=== PATIENT | female | born 1950 | race Caucasian/White ===

== ENCOUNTER 2018-11-15 15:22 | Inpatient (IN) | payer OTHER, MEDICAID ==
[~2018-11-15] VITALS: Ht 167.6 cm; Wt 68.2 kg
[2018-11-15] MEDS ORDERED: ondansetron/PF 4mg/2ml inj IV ONE (16:35)
[2018-11-15] MEDS ORDERED: LORazepam 2 mg/ml vial IV ONE (16:35)
[2018-11-15 16:55] LABS: BASOPHILS # (AUTO) 0.1 X10'3 (0-0.2); BASOPHILS % (AUTO) 0.8 % (0-1); EOSINOPHILS # (AUTO) 0.2 X10'3 (0-0.9); EOSINOPHILS % (AUTO) 1.2 % (0-6); HEMOGLOBIN 12.9 g/dl (12.0-16.0); LYMPHOCYTES # (AUTO) 1.2 X10'3 (1.1-4.8); MEAN CORPUSCULAR HEMOGLOBIN 29.5 PG (27.0-31.0); MEAN CORPUSCULAR HGB CONC 33.1 g/dL (33.0-36.5); MEAN CORPUSCULAR VOLUME 89.4 FL (78-98); MEAN PLATELET VOLUME 8.5 FL (7.4-10.4); MONOCYTES # (AUTO) 0.9 X10'3 (0-0.9); NEUTROPHILS # (AUTO) 10.7 X10'3 (1.8-7.7); PLATELET COUNT 241 X10'3 (140-440); RED BLOOD COUNT 4.37 X10'6 (4.20-5.60); RED CELL DISTRIBUTION WIDTH 14.5 % (11.5-14.5); WHITE BLOOD COUNT 13.1 X10'3 (4.5-11.0)
[2018-11-15] MEDS ORDERED: morphine 2 MG/ML inj. syringe IV ONE (16:55)
[2018-11-15 17:07] LABS: ALANINE AMINOTRANSFERASE 28 U/L (12-78); ALBUMIN 3.5 G/DL (3.4-5.0); ALBUMIN/GLOBULIN RATIO 1.2 (1.1-1.5); ALKALINE PHOSPHATASE 62 IU/L (46-116); ANION GAP 5 (8-16); ASPARTATE AMINO TRANSFERASE 17 U/L (10-37); BILIRUBIN,TOTAL 0.4 MG/DL (0.1-1.0); BLOOD UREA NITROGEN 15 MG/DL (7-18); BUN/CREATININE RATIO 17.4 (6.6-38.0); CALCIUM 8.7 MG/DL (8.5-10.1); CHLORIDE 109 MMOL/L (99-107); CREATININE 0.86 MG/DL (0.40-0.90); GLUCOSE 104 MG/DL (70-104); POTASSIUM 3.6 MMOL/L (3.5-5.1); SODIUM 141 MMOL/L (135-145); TOTAL CARBON DIOXIDE 27.5 MMOL/L (24-32); TOTAL PROTEIN 6.5 G/DL (6.4-8.2); eGFR 66 ML/MIN
[2018-11-15] MEDS: K and/or MAG REPLACEMENT MC SCH (18:10)
[2018-11-15] MEDS ORDERED: acetaminophen 325mg tablet PO PRN (18:10)
[2018-11-15] MEDS ORDERED: potassium Cl 20 mEq SR tablet PO PRN ×2 (18:10)
[2018-11-15] MEDS ORDERED: bisacodyl 10mg suppository rectal RC PRN (18:10)
[2018-11-15] MEDS ORDERED: magnesium 2GM in 50ml NS 50 ML IV PRN (18:10)
[2018-11-15] MEDS ORDERED: potassium Cl 40MEQ/NS 500ml 500 ML IV PRN (18:10)
[2018-11-15] MEDS ORDERED: mag hydrox/Alum hydrox/simeth 30ml oral suspension PO PRN (18:10)
[2018-11-15] MEDS ORDERED: ondansetron/PF 4mg/2ml inj IV PRN (18:10)
[2018-11-15] MEDS ORDERED: magnesium 4gm in 100ml NS 100 ML IV PRN (18:10)
[2018-11-15] MEDS ORDERED: magnesium Cl slow-release 64mg tablet PO PRN (18:10)
[2018-11-15] MEDS ORDERED: potassium CL 10mEq/100ml bag 100 ML IV PRN (18:10)
[2018-11-15] MEDS: HYDROmorphone inj. 0.5 MG/0.5 ML DISP.SYRIN IV PRN (18:49)
[2018-11-15] MEDS ORDERED: LISI-600 PO (19:04)
[2018-11-15] MEDS ORDERED: CLOP75TA35 PO (19:04)
[2018-11-15] MEDS ORDERED: ASPI-1265 PO (19:04)
[2018-11-15] MEDS ORDERED: TRAM50TA2 PO (19:04)
[2018-11-15] MEDS ORDERED: ATOR40TA71 PO (19:04)
[2018-11-15 20:00] VITALS: BP 134/84
[2018-11-15] MEDS: docusate sod 100mg capsule PO SCH (20:00)
--- NOTE | 2018-11-15 20:00 | NUR ---
Received report. Patient brought to room via gurney. VS taken and tele monitor placed. Educated to POC and call light. FC placed.
[2018-11-15] MEDS: potassium Cl 20mEq in NS 1,000 ML IV SCH (21:02)
[2018-11-15 21:47] LABS: CLARITY,URINE CLEAR (Clear); COLOR,URINE YELLOW (Yellow); GLUCOSE, URINE NEGATIVE (Neg); KETONES,URINE NEGATIVE (Neg); LEUKOCYTE ESTERASE ,URINE NEGATIVE (Neg); NITRITES, URINE NEGATIVE (Neg); OCCULT BLOOD,URINE NEGATIVE (Neg); PH,URINE 6.5 (4.8-8.0); PROTEIN,URINE NEGATIVE (Neg); UROBILINOGEN,URINE 0.2 E.U/dL (0.2-1.0)
[2018-11-15 21:52] LABS: UA COLLECTION TYPE FOLEY CATH
[2018-11-15] MEDS: HYDROmorphone 1 mg/ml syringe IV PRN (21:59)
[2018-11-15 22:00] VITALS: BP 119/64
[2018-11-16] VITALS (18 sets, daily range): BP systolic 114–167; BP diastolic 76–97
[2018-11-16] MEDS: HYDROmorphone 1 mg/ml syringe IV PRN ×2 (02:50→15:07)
--- NOTE | 2018-11-16 06:26 | NUR ---
Problems reprioritized. Patient report given, questions answered & plan of care reviewed with Teresa. SCALES.
[2018-11-16 06:34] LABS: BASOPHILS # (AUTO) 0.1 X10'3 (0-0.2); BASOPHILS % (AUTO) 0.9 % (0-1); EOSINOPHILS # (AUTO) 0.1 X10'3 (0-0.9); EOSINOPHILS % (AUTO) 1.3 % (0-6); HEMATOCRIT 36.6 % (35.0-45.0); HEMOGLOBIN 12.4 g/dl (12.0-16.0); LYMPHOCYTES # (AUTO) 1.5 X10'3 (1.1-4.8); LYMPHOCYTES % (AUTO) 20.1 % (21-51); MEAN CORPUSCULAR HGB CONC 33.8 g/dL (33.0-36.5); MEAN CORPUSCULAR VOLUME 88.9 FL (78-98); MEAN PLATELET VOLUME 8.6 FL (7.4-10.4); MONOCYTES # (AUTO) 0.8 X10'3 (0-0.9); MONOCYTES % (AUTO) 10.8 % (2-12); NEUTROPHILS % (AUTO) 66.9 % (42-75); PLATELET COUNT 197 X10'3 (140-440); RED BLOOD COUNT 4.12 X10'6 (4.20-5.60); RED CELL DISTRIBUTION WIDTH 14.4 % (11.5-14.5); WHITE BLOOD COUNT 7.4 X10'3 (4.5-11.0)
[2018-11-16 07:02] LABS: ANION GAP 6 (8-16); BLOOD UREA NITROGEN 13 MG/DL (7-18); BUN/CREATININE RATIO 17.8 (6.6-38.0); CALCIUM 8.4 MG/DL (8.5-10.1); CHLORIDE 109 MMOL/L (99-107); CREATININE 0.73 MG/DL (0.40-0.90); GLUCOSE 98 MG/DL (70-104); POTASSIUM 4.2 MMOL/L (3.5-5.1); SODIUM 141 MMOL/L (135-145); TOTAL CARBON DIOXIDE 25.6 MMOL/L (24-32); eGFR 79 ML/MIN
[2018-11-16] MEDS: nicotine 21mg patch - 24 hr TD SCH (07:18)
[2018-11-16] MEDS: docusate sod 100mg capsule PO SCH ×2 (07:31→19:40)
[2018-11-16] MEDS: traMADol 50MG tablet PO PRN (07:32)
[2018-11-16] MEDS: K and/or MAG REPLACEMENT MC SCH (08:00)
[2018-11-16] MEDS: potassium Cl 20mEq in NS 1,000 ML IV SCH ×2 (08:00→14:21)
[2018-11-16] MEDS: HYDROmorphone inj. 0.5 MG/0.5 ML DISP.SYRIN IV PRN (13:06)
[2018-11-16] MEDS ORDERED: sevoflurane 250ml liquid IH ONE (13:56)
[2018-11-16] MEDS ORDERED: fentaNYL/PF 50MCG/1 ML 2ML syringe ONE (13:57)
[2018-11-16] MEDS ORDERED: propofol inj 20 ML IV ONE (13:58)
--- NOTE | 2018-11-16 14:30 | NUR ---
Received from OR via bed, accompanied by Anesthesiologist. Report received. Initial physical assessment done and recorded. LMA in place on arrival to PACU.
--- NOTE | 2018-11-16 14:35 | NUR ---
LMA out, able to lift head on request, complaints of pain medicated per orders
--- NOTE | 2018-11-16 15:30 | NUR ---
Discharge criteria met, report to receiving floor. Transferred to room in stable condition.
--- NOTE | 2018-11-16 15:43 | NUR ---
Malnutrition consult. PO intake is pending. patient admitted with severe muscle weakness likely r/t fractured right femur, presented to ED [facility] and admitted with right femur fracture. Patient now s/p right open reduction percutaneous hip pinning on 11/16. PO intake pending, patient back from surgery today. Right left 3+ non pitting, likely r/t the fracture. Unable to perform bedside interview today as she is s/p surgery. Patient on a regular diet, recommend oral nutrition supplement to provide additional protein for healing and while pending bedside interview for malnutrition. Recommend: 1. continue regular diet 2. recommend ensure enlive with meals 3. weight per rx Addendum: 11/16/18 at [address] Amended: Links added.
[2018-11-16] MEDS: cefazolin/dext.iso 2gm/100ml 100 ML IV SCH (17:45)
[2018-11-16] MEDS: lactose-reduced food (Ensure Enlive) - 237ml bottle PO SCH (18:00)
--- NOTE | 2018-11-16 18:18 | NUR ---
report to Deann Link RN
--- NOTE | 2018-11-16 18:23 | NUR ---
Report received from Shelby SCALES.
[2018-11-17] MEDS: traMADol 50MG tablet PO PRN ×3 (01:02→21:32)
[2018-11-17] MEDS: cefazolin/dext.iso 2gm/100ml 100 ML IV SCH (01:02)
[2018-11-17] MEDS: potassium Cl 20mEq in NS 1,000 ML IV SCH ×2 (01:05→20:59)
[2018-11-17 02:00] VITALS: BP 150/79
[2018-11-17 06:00] VITALS: BP 141/85
[2018-11-17 06:14] LABS: BASOPHILS % (AUTO) 0.3 % (0-1); EOSINOPHILS % (AUTO) 0.3 % (0-6); HEMOGLOBIN 12.7 g/dl (12.0-16.0); LYMPHOCYTES # (AUTO) 1.1 X10'3 (1.1-4.8); LYMPHOCYTES % (AUTO) 10.9 % (21-51); MEAN CORPUSCULAR HEMOGLOBIN 29.9 PG (27.0-31.0); MEAN CORPUSCULAR HGB CONC 33.4 g/dL (33.0-36.5); MEAN CORPUSCULAR VOLUME 89.4 FL (78-98); MEAN PLATELET VOLUME 9.1 FL (7.4-10.4); MONOCYTES # (AUTO) 0.9 X10'3 (0-0.9); MONOCYTES % (AUTO) 8.9 % (2-12); NEUTROPHILS # (AUTO) 8.3 X10'3 (1.8-7.7); NEUTROPHILS % (AUTO) 79.6 % (42-75); PLATELET COUNT 175 X10'3 (140-440); RED BLOOD COUNT 4.25 X10'6 (4.20-5.60); RED CELL DISTRIBUTION WIDTH 14.3 % (11.5-14.5); WHITE BLOOD COUNT 10.5 X10'3 (4.5-11.0)
--- NOTE | 2018-11-17 06:28 | NUR ---
Student documentation: I have reviewed and agree with all medication administrations, interventions, assessments performed and documented by Shelby Carver
--- NOTE | 2018-11-17 06:31 | NUR ---
Report given to Shelby SCALES.
[2018-11-17 06:32] LABS: ALBUMIN 2.8 G/DL (3.4-5.0); ANION GAP 7 (8-16); BLOOD UREA NITROGEN 9 MG/DL (7-18); CALCIUM 8.3 MG/DL (8.5-10.1); CHLORIDE 103 MMOL/L (99-107); CREATININE 0.69 MG/DL (0.40-0.90); GLUCOSE 95 MG/DL (70-104); MAGNESIUM 1.7 MG/DL (1.5-2.4); POTASSIUM 4.1 MMOL/L (3.5-5.1); SODIUM 135 MMOL/L (135-145); TOTAL CARBON DIOXIDE 25.3 MMOL/L (24-32); eGFR 85 ML/MIN
[2018-11-17] MEDS: K and/or MAG REPLACEMENT MC SCH (07:14)
[2018-11-17] MEDS: nicotine 21mg patch - 24 hr TD SCH (08:00)
[2018-11-17] MEDS: aspirin 81mg tab.chew PO SCH (08:28)
[2018-11-17] MEDS: docusate sod 100mg capsule PO SCH ×2 (08:28→20:49)
[2018-11-17] MEDS: clopidogrel 75mg tablet PO SCH (08:28)
[2018-11-17] MEDS: atorvastatin 20mg tablet PO SCH (08:28)
[2018-11-17 10:00] VITALS: BP 106/60
--- NOTE | 2018-11-17 15:07 | NUR ---
F/u: Pt PO 75% avg meals w/ ONS; able to eat if not drowsy per RN today. No signs of muscle/fat wasting per RN. Pt has no significant weakness noted as well today. Does not qualify for malnutrition at this time. Will continue to monitor. Recommend: 1. continue regular diet 2. recommend ensure enlive with meals 3. weight per rx Addendum: 11/17/18 at [address] Amended: Links added.
--- NOTE | 2018-11-17 15:33 | NUR ---
Report to Mita wells RN
--- NOTE | 2018-11-17 16:30 | NUR ---
Patient in room [facility]TH[facility] 4024. I have received report from YORDY NUR and had the opportunity to ask questions and assume patient care.
[2018-11-17] MEDS: enoxaparin 40mg/0.4ml syringe SUBCUT SCH (16:54)
[2018-11-17 18:00] VITALS: BP 126/71
[2018-11-17] MEDS: lactose-reduced food (Ensure Enlive) - 237ml bottle PO SCH (18:00)
[2018-11-17 22:00] VITALS: BP 121/74
[2018-11-18] MEDS: potassium Cl 20mEq in NS 1,000 ML IV SCH (03:51)
[2018-11-18 05:43] LABS: BASOPHILS # (AUTO) 0.1 X10'3 (0-0.2); BASOPHILS % (AUTO) 0.8 % (0-1); EOSINOPHILS # (AUTO) 0.2 X10'3 (0-0.9); EOSINOPHILS % (AUTO) 2.3 % (0-6); HEMATOCRIT 37.6 % (35.0-45.0); HEMOGLOBIN 12.4 g/dl (12.0-16.0); LYMPHOCYTES # (AUTO) 1.4 X10'3 (1.1-4.8); LYMPHOCYTES % (AUTO) 16.7 % (21-51); MEAN CORPUSCULAR HEMOGLOBIN 29.5 PG (27.0-31.0); MEAN CORPUSCULAR HGB CONC 32.9 g/dL (33.0-36.5); MEAN CORPUSCULAR VOLUME 89.7 FL (78-98); MEAN PLATELET VOLUME 9.2 FL (7.4-10.4); MONOCYTES # (AUTO) 1.1 X10'3 (0-0.9); NEUTROPHILS # (AUTO) 5.6 X10'3 (1.8-7.7); NEUTROPHILS % (AUTO) 67.2 % (42-75); PLATELET COUNT 176 X10'3 (140-440); RED BLOOD COUNT 4.19 X10'6 (4.20-5.60); RED CELL DISTRIBUTION WIDTH 14.1 % (11.5-14.5); WHITE BLOOD COUNT 8.3 X10'3 (4.5-11.0)
[2018-11-18] MEDS: traMADol 50MG tablet PO PRN ×2 (05:46→14:53)
[2018-11-18 06:00] VITALS: BP 139/68
--- NOTE | 2018-11-18 06:20 | NUR ---
Patient in room [facility]TH[facility] 4024. I have received report from FEDERICO SCALES and had the opportunity to ask questions and assume patient care.
[2018-11-18 06:23] LABS: ALBUMIN 2.5 G/DL (3.4-5.0); ANION GAP 7 (8-16); BLOOD UREA NITROGEN 14 MG/DL (7-18); BUN/CREATININE RATIO 19.4 (6.6-38.0); CALCIUM 8.4 MG/DL (8.5-10.1); CHLORIDE 103 MMOL/L (99-107); CREATININE 0.72 MG/DL (0.40-0.90); GLUCOSE 90 MG/DL (70-104); MAGNESIUM 1.8 MG/DL (1.5-2.4); POTASSIUM 3.8 MMOL/L (3.5-5.1); SODIUM 136 MMOL/L (135-145); TOTAL CARBON DIOXIDE 26.2 MMOL/L (24-32); eGFR 81 ML/MIN
--- NOTE | 2018-11-18 06:25 | NUR ---
Problems reprioritized. Patient report given, questions answered & plan of care reviewed with adriana Westbrook.
[2018-11-18] MEDS: K and/or MAG REPLACEMENT MC SCH (08:00)
[2018-11-18] MEDS: clopidogrel 75mg tablet PO SCH (08:52)
[2018-11-18] MEDS: aspirin 81mg tab.chew PO SCH (08:52)
[2018-11-18] MEDS: docusate sod 100mg capsule PO SCH ×2 (08:52→19:47)
[2018-11-18] MEDS: atorvastatin 20mg tablet PO SCH (08:52)
[2018-11-18] MEDS: lactose-reduced food (Ensure Enlive) - 237ml bottle PO SCH ×3 (08:53→18:00)
[2018-11-18] MEDS: enoxaparin 40mg/0.4ml syringe SUBCUT SCH (08:53)
[2018-11-18] MEDS: magnesium hydroxide 30ml (MOM) UD suspension PO PRN (08:59)
[2018-11-18 10:00] VITALS: BP 105/68
[2018-11-18 18:00] VITALS: BP 96/61
--- NOTE | 2018-11-18 18:25 | NUR ---
Problems reprioritized. Patient report given, questions answered & plan of care reviewed with DIMA SCALES.
[2018-11-18 22:00] VITALS: BP 121/70
[2018-11-19] MEDS: traMADol 50MG tablet PO PRN ×3 (05:17→22:51)
[2018-11-19 05:49] LABS: ALBUMIN 2.4 G/DL (3.4-5.0); ANION GAP 5 (8-16); BLOOD UREA NITROGEN 14 MG/DL (7-18); BUN/CREATININE RATIO 19.7 (6.6-38.0); CALCIUM 8.2 MG/DL (8.5-10.1); CHLORIDE 105 MMOL/L (99-107); CREATININE 0.71 MG/DL (0.40-0.90); GLUCOSE 95 MG/DL (70-104); MAGNESIUM 1.9 MG/DL (1.5-2.4); POTASSIUM 3.7 MMOL/L (3.5-5.1); SODIUM 138 MMOL/L (135-145); TOTAL CARBON DIOXIDE 27.8 MMOL/L (24-32); eGFR 82 ML/MIN
[2018-11-19 05:57] LABS: BASOPHILS % (AUTO) 0.6 % (0-1); EOSINOPHILS # (AUTO) 0.3 X10'3 (0-0.9); EOSINOPHILS % (AUTO) 4.2 % (0-6); HEMATOCRIT 36.3 % (35.0-45.0); LYMPHOCYTES # (AUTO) 1.4 X10'3 (1.1-4.8); MEAN CORPUSCULAR HEMOGLOBIN 29.5 PG (27.0-31.0); MEAN CORPUSCULAR HGB CONC 33.1 g/dL (33.0-36.5); MEAN CORPUSCULAR VOLUME 89.2 FL (78-98); MEAN PLATELET VOLUME 9.3 FL (7.4-10.4); MONOCYTES # (AUTO) 0.8 X10'3 (0-0.9); MONOCYTES % (AUTO) 12.9 % (2-12); NEUTROPHILS # (AUTO) 3.7 X10'3 (1.8-7.7); NEUTROPHILS % (AUTO) 60.3 % (42-75); PLATELET COUNT 203 X10'3 (140-440); RED BLOOD COUNT 4.07 X10'6 (4.20-5.60); RED CELL DISTRIBUTION WIDTH 13.8 % (11.5-14.5); WHITE BLOOD COUNT 6.2 X10'3 (4.5-11.0)
[2018-11-19 06:00] VITALS: BP 127/80
--- NOTE | 2018-11-19 06:14 | NUR ---
Patient report given, questions answered & plan of care reviewed with Pietro SCALES.
[2018-11-19] MEDS: K and/or MAG REPLACEMENT MC SCH (08:00)
[2018-11-19] MEDS: aspirin 81mg tab.chew PO SCH (08:06)
[2018-11-19] MEDS: docusate sod 100mg capsule PO SCH ×2 (08:06→19:38)
[2018-11-19] MEDS: clopidogrel 75mg tablet PO SCH (08:07)
[2018-11-19] MEDS: atorvastatin 20mg tablet PO SCH (08:07)
[2018-11-19] MEDS: lactose-reduced food (Ensure Enlive) - 237ml bottle PO SCH ×3 (08:09→18:00)
[2018-11-19] MEDS: enoxaparin 40mg/0.4ml syringe SUBCUT SCH (08:09)
[2018-11-19] MEDS: magnesium hydroxide 30ml (MOM) UD suspension PO PRN (08:32)
[2018-11-19 10:00] VITALS: BP 107/59
--- NOTE | 2018-11-19 13:30 | NUR ---
spoke to Jude brock the ensure not being on the tray for lunch. he states he will address it
[2018-11-19 17:00] VITALS: BP 111/64
[2018-11-19 22:00] VITALS: BP 115/58
[2018-11-20] MEDS: traMADol 50MG tablet PO PRN ×3 (05:13→17:34)
[2018-11-20 06:00] VITALS: BP 142/84
--- NOTE | 2018-11-20 06:14 | NUR ---
Problems reprioritized. Patient report given, questions answered & plan of care reviewed with Arron SCALES.
[2018-11-20 06:46] LABS: ALBUMIN 2.5 G/DL (3.4-5.0); ANION GAP 3 (8-16); BLOOD UREA NITROGEN 16 MG/DL (7-18); BUN/CREATININE RATIO 19.5 (6.6-38.0); CALCIUM 8.6 MG/DL (8.5-10.1); CHLORIDE 105 MMOL/L (99-107); CREATININE 0.82 MG/DL (0.40-0.90); GLUCOSE 88 MG/DL (70-104); SODIUM 137 MMOL/L (135-145); TOTAL CARBON DIOXIDE 28.6 MMOL/L (24-32); eGFR 69 ML/MIN
[2018-11-20 06:55] LABS: BASOPHILS # (AUTO) 0.1 X10'3 (0-0.2); BASOPHILS % (AUTO) 0.8 % (0-1); EOSINOPHILS # (AUTO) 0.4 X10'3 (0-0.9); EOSINOPHILS % (AUTO) 5.7 % (0-6); HEMATOCRIT 34.7 % (35.0-45.0); HEMOGLOBIN 11.6 g/dl (12.0-16.0); LYMPHOCYTES # (AUTO) 1.7 X10'3 (1.1-4.8); LYMPHOCYTES % (AUTO) 24.4 % (21-51); MEAN CORPUSCULAR HEMOGLOBIN 29.8 PG (27.0-31.0); MEAN CORPUSCULAR HGB CONC 33.3 g/dL (33.0-36.5); MEAN CORPUSCULAR VOLUME 89.4 FL (78-98); MEAN PLATELET VOLUME 9.6 FL (7.4-10.4); MONOCYTES # (AUTO) 0.9 X10'3 (0-0.9); MONOCYTES % (AUTO) 13.3 % (2-12); NEUTROPHILS # (AUTO) 3.9 X10'3 (1.8-7.7); NEUTROPHILS % (AUTO) 55.8 % (42-75); PLATELET COUNT 226 X10'3 (140-440); RED BLOOD COUNT 3.88 X10'6 (4.20-5.60); WHITE BLOOD COUNT 6.9 X10'3 (4.5-11.0)
[2018-11-20] MEDS: K and/or MAG REPLACEMENT MC SCH (08:00)
[2018-11-20] MEDS: lactose-reduced food (Ensure Enlive) - 237ml bottle PO SCH ×3 (08:00→18:00)
[2018-11-20] MEDS: docusate sod 100mg capsule PO SCH ×2 (09:04→18:59)
[2018-11-20] MEDS: clopidogrel 75mg tablet PO SCH (09:04)
[2018-11-20] MEDS: aspirin 81mg tab.chew PO SCH (09:04)
[2018-11-20] MEDS: atorvastatin 20mg tablet PO SCH (09:04)
[2018-11-20] MEDS: enoxaparin 40mg/0.4ml syringe SUBCUT SCH (09:04)
[2018-11-20 17:00] VITALS: BP 139/72
--- NOTE | 2018-11-20 17:02 | NUR ---
PAGER ID: [phone] MESSAGE: Angélica [phone] re Alyssia nova in [phone]- can I leave her IV out? She is not on any fluids. Thanks!
[2018-11-20] MEDS: magnesium hydroxide 30ml (MOM) UD suspension PO PRN (17:43)
[2018-11-20 22:00] VITALS: BP 124/67
[2018-11-21] MEDS: traMADol 50MG tablet PO PRN ×3 (05:43→19:16)
[2018-11-21 06:00] VITALS: BP 136/81
--- NOTE | 2018-11-21 06:31 | NUR ---
Problems reprioritized. Patient report given, questions answered & plan of care reviewed with Angélica SCALES.
[2018-11-21 06:50] LABS: BASOPHILS # (AUTO) 0.1 X10'3 (0-0.2); EOSINOPHILS # (AUTO) 0.5 X10'3 (0-0.9); HEMOGLOBIN 11.6 g/dl (12.0-16.0); LYMPHOCYTES # (AUTO) 1.9 X10'3 (1.1-4.8); LYMPHOCYTES % (AUTO) 28.9 % (21-51); MEAN CORPUSCULAR HEMOGLOBIN 30.2 PG (27.0-31.0); MEAN CORPUSCULAR HGB CONC 34.2 g/dL (33.0-36.5); MEAN CORPUSCULAR VOLUME 88.4 FL (78-98); MEAN PLATELET VOLUME 9.2 FL (7.4-10.4); MONOCYTES # (AUTO) 0.9 X10'3 (0-0.9); MONOCYTES % (AUTO) 14.7 % (2-12); NEUTROPHILS # (AUTO) 3.1 X10'3 (1.8-7.7); NEUTROPHILS % (AUTO) 48.4 % (42-75); PLATELET COUNT 233 X10'3 (140-440); RED BLOOD COUNT 3.84 X10'6 (4.20-5.60); RED CELL DISTRIBUTION WIDTH 14.4 % (11.5-14.5); WHITE BLOOD COUNT 6.4 X10'3 (4.5-11.0)
[2018-11-21] MEDS: K and/or MAG REPLACEMENT MC SCH (08:00)
[2018-11-21] MEDS: lactose-reduced food (Ensure Enlive) - 237ml bottle PO SCH ×3 (08:00→18:58)
[2018-11-21] MEDS: aspirin 81mg tab.chew PO SCH (09:55)
[2018-11-21] MEDS: enoxaparin 40mg/0.4ml syringe SUBCUT SCH (09:55)
[2018-11-21] MEDS: docusate sod 100mg capsule PO SCH ×2 (09:55→19:16)
[2018-11-21] MEDS: clopidogrel 75mg tablet PO SCH (09:55)
[2018-11-21] MEDS: atorvastatin 20mg tablet PO SCH (09:55)
[2018-11-21 10:00] VITALS: BP 108/68
--- NOTE | 2018-11-21 15:06 | NUR ---
PAGER ID: [phone] MESSAGE: Angélica Chopra0 delmy Mercado in [phone]- please call me thanks Addendum: 11/21/18 at 1508 by Hetal Figueroa RN disregard above message, charted on the wrong pt
[2018-11-21 18:00] VITALS: BP 115/68
--- NOTE | 2018-11-21 18:20 | NUR ---
Patient in room [facility]TH[facility] 4024. I have received report from YORDY Lindsay and had the opportunity to ask questions and assume patient care.
[2018-11-21 22:00] VITALS: BP 107/55
[2018-11-22] MEDS: traMADol 50MG tablet PO PRN ×3 (04:43→20:37)
[2018-11-22 06:41] LABS: BASOPHILS # (AUTO) 0.1 X10'3 (0-0.2); BASOPHILS % (AUTO) 1.2 % (0-1); EOSINOPHILS # (AUTO) 0.5 X10'3 (0-0.9); EOSINOPHILS % (AUTO) 7.8 % (0-6); HEMATOCRIT 32.5 % (35.0-45.0); HEMOGLOBIN 11.1 g/dl (12.0-16.0); LYMPHOCYTES # (AUTO) 2.1 X10'3 (1.1-4.8); LYMPHOCYTES % (AUTO) 32.9 % (21-51); MEAN CORPUSCULAR HEMOGLOBIN 30.2 PG (27.0-31.0); MEAN CORPUSCULAR HGB CONC 34.2 g/dL (33.0-36.5); MEAN CORPUSCULAR VOLUME 88.4 FL (78-98); MEAN PLATELET VOLUME 9.2 FL (7.4-10.4); MONOCYTES % (AUTO) 15.1 % (2-12); NEUTROPHILS # (AUTO) 2.8 X10'3 (1.8-7.7); PLATELET COUNT 256 X10'3 (140-440); RED BLOOD COUNT 3.67 X10'6 (4.20-5.60); RED CELL DISTRIBUTION WIDTH 13.9 % (11.5-14.5); WHITE BLOOD COUNT 6.5 X10'3 (4.5-11.0)
--- NOTE | 2018-11-22 06:42 | NUR ---
Problems reprioritized. Patient report given, questions answered & plan of care reviewed with YORDY Xavier.
[2018-11-22 06:55] VITALS: BP 126/55
[2018-11-22] MEDS: K and/or MAG REPLACEMENT MC SCH (08:00)
[2018-11-22] MEDS: atorvastatin 20mg tablet PO SCH (08:29)
[2018-11-22] MEDS: docusate sod 100mg capsule PO SCH ×2 (08:29→20:37)
[2018-11-22] MEDS: clopidogrel 75mg tablet PO SCH (08:29)
[2018-11-22] MEDS: aspirin 81mg tab.chew PO SCH (08:29)
[2018-11-22] MEDS: enoxaparin 40mg/0.4ml syringe SUBCUT SCH (08:30)
[2018-11-22] MEDS: lactose-reduced food (Ensure Enlive) - 237ml bottle PO SCH ×3 (08:31→18:30)
[2018-11-22 10:08] VITALS: BP 107/56
--- NOTE | 2018-11-22 14:26 | NUR ---
reassessment: Pt PO 100% ONS and 75% avg regular diet meeting needs. LBM 11/20. No nutrition concerns at this time. Recommend: 1. continue regular diet 2. recommend ensure enlive with meals 3. weight per rx Addendum: 11/22/18 at [address] Amended: Links added.
[2018-11-22 18:00] VITALS: BP 102/52
[2018-11-22 22:00] VITALS: BP 99/55
[2018-11-23] MEDS: traMADol 50MG tablet PO PRN ×3 (03:19→18:12)
[2018-11-23 06:00] VITALS: BP 106/53
--- NOTE | 2018-11-23 06:58 | NUR ---
Patient in room [facility]TH[facility] 4024. I have received report from YORDY Ashford and had the opportunity to ask questions and assume patient care.
[2018-11-23 07:26] LABS: BASOPHILS # (AUTO) 0.1 X10'3 (0-0.2); EOSINOPHILS # (AUTO) 0.5 X10'3 (0-0.9); EOSINOPHILS % (AUTO) 7.3 % (0-6); HEMATOCRIT 33.3 % (35.0-45.0); HEMOGLOBIN 11.3 g/dl (12.0-16.0); LYMPHOCYTES # (AUTO) 1.8 X10'3 (1.1-4.8); LYMPHOCYTES % (AUTO) 26.8 % (21-51); MEAN CORPUSCULAR VOLUME 88.3 FL (78-98); MEAN PLATELET VOLUME 8.9 FL (7.4-10.4); MONOCYTES # (AUTO) 1.1 X10'3 (0-0.9); MONOCYTES % (AUTO) 15.6 % (2-12); NEUTROPHILS # (AUTO) 3.4 X10'3 (1.8-7.7); NEUTROPHILS % (AUTO) 49.3 % (42-75); PLATELET COUNT 300 X10'3 (140-440); RED BLOOD COUNT 3.77 X10'6 (4.20-5.60); RED CELL DISTRIBUTION WIDTH 14.3 % (11.5-14.5); WHITE BLOOD COUNT 6.8 X10'3 (4.5-11.0)
[2018-11-23] MEDS: K and/or MAG REPLACEMENT MC SCH (08:00)
[2018-11-23] MEDS: aspirin 81mg tab.chew PO SCH (08:09)
[2018-11-23] MEDS: docusate sod 100mg capsule PO SCH ×2 (08:09→19:28)
[2018-11-23] MEDS: clopidogrel 75mg tablet PO SCH (08:10)
[2018-11-23] MEDS: enoxaparin 40mg/0.4ml syringe SUBCUT SCH (08:10)
[2018-11-23] MEDS: atorvastatin 20mg tablet PO SCH (08:10)
[2018-11-23] MEDS: lactose-reduced food (Ensure Enlive) - 237ml bottle PO SCH ×3 (08:35→19:00)
[2018-11-23 10:00] VITALS: BP 97/62
[2018-11-23] MEDS ORDERED: TRAM50TA2 PO (16:05)
[2018-11-23 18:00] VITALS: BP 129/68
--- NOTE | 2018-11-23 18:49 | NUR ---
Problems reprioritized. Patient report given, questions answered & plan of care reviewed with YORDY Ashford.
[2018-11-23 22:00] VITALS: BP 111/57
== END 2018-11-24 01:53 | disposition home or self-care (01) | DRG 482 ==
LOC: ER 15:23 → ORTHO 4S 19:36 → CMPBEDREQ 11-17 19:44
PROVIDERS: ADMIT Internal Medicine; ATTEND Internal Medicine
PROC: 0QH634Z Insertion of Internal Fixation Device into Right Upper Femur, Percutaneous Approach (ICD-10-PCS; principal; 2018-11-16 13:56)
DX: S72.001A Fracture of unspecified part of neck of right femur, initial encounter for closed fracture (principal); E78.00 Pure hypercholesterolemia, unspecified; E78.5 Hyperlipidemia, unspecified; F15.10 Other stimulant abuse, uncomplicated; F17.200 Nicotine dependence, unspecified, uncomplicated; I10 Essential (primary) hypertension; G89.4 Chronic pain syndrome; W01.0XXA Fall on same level from slipping, tripping and stumbling without subsequent striking against object, initial encounter; Y93.01 Activity, walking, marching and hiking; D72.828 Other elevated white blood cell count; S72.051A Unspecified fracture of head of right femur, initial encounter for closed fracture; Y92.89 Other specified places as the place of occurrence of the external cause; Y99.8 Other external cause status; Z86.73 Personal history of transient ischemic attack (TIA), and cerebral infarction without residual deficits; Z71.6 Tobacco abuse counseling; Z88.8 Allergy status to other drugs, medicaments and biological substances; Z88.5 Allergy status to narcotic agent; Z71.51 Drug abuse counseling and surveillance of drug abuser
CPT/HCPCS: 36415; 70450; 71045; 71046; 73502; 76000; 80048; 80053; 81003; 82948; 83735; 85025; 85610; 87070; 93005; 96374; 96375; 97110; 97116; 97161; 97530; 97535; 99285; A6222; A6454; A7000; C1713; G0378; J0690; J1170; J1650; J2060; J2270; J2405; J2704; J3010; J7120